=== PATIENT | male | born 1975 | race Caucasian/White ===

== ENCOUNTER 2021-03-10 09:08 | Day surgery (SDC) | payer OTHER ==
[2021-03-04 14:25] LABS: BASOPHILS # (AUTO) 0.1 X10'3 (0-0.2); BASOPHILS % (AUTO) 1.2 % (0-1); EOSINOPHILS # (AUTO) 0.2 X10'3 (0-0.9); EOSINOPHILS % (AUTO) 3.1 % (0-6); LYMPHOCYTES # (AUTO) 2.2 X10'3 (1.1-4.8); LYMPHOCYTES % (AUTO) 29.7 % (21-51); MEAN CORPUSCULAR HEMOGLOBIN 30.3 PG (27.0-31.0); MEAN CORPUSCULAR HGB CONC 33.2 g/dL (33.0-36.5); MEAN CORPUSCULAR VOLUME 91.2 FL (78-98); MONOCYTES # (AUTO) 0.5 X10'3 (0-0.9); MONOCYTES % (AUTO) 7.2 % (2-12); NEUTROPHILS # (AUTO) 4.4 X10'3 (1.8-7.7); NEUTROPHILS % (AUTO) 58.8 % (42-75); PRE OP HEMATOCRIT 43.8 % (42.0-52.0); PRE OP HEMOGLOBIN 14.6 g/dL (14.0-17.9); PRE OP PLATELET COUNT 308 X10'3 (140-440); RED BLOOD COUNT 4.81 X10'6 (4.70-6.10); RED CELL DISTRIBUTION WIDTH 13.8 % (11.5-14.5)
[2021-03-04 14:45] LABS: ALBUMIN 4.4 G/DL (3.4-5.0); ALBUMIN/GLOBULIN RATIO 1.2 (1.1-1.5); ALKALINE PHOSPHATASE 71 IU/L (46-116); BLOOD UREA NITROGEN 11 MG/DL (7-18); BUN/CREATININE RATIO 11.3 (5.4-32.0); CALCIUM 8.8 MG/DL (8.5-10.1); CREATININE 0.97 MG/DL (0.60-1.10); PRE OP ALT 63 U/L (30-65); PRE OP AST 27 U/L (10-37); PRE OP BILIRUB, TOTAL 0.5 MG/DL (0.0-1.0); PRE OP GLUCOSE 94 MG/DL (70-104); TOTAL CARBON DIOXIDE 24.6 MMOL/L (24-32); eGFR 84 ML/MIN
[2021-03-04 14:52] LABS: CHLORIDE 103 MMOL/L (99-107); PRE OP ANION GAP 13 (8-16); PRE OP POTASSIUM 4.3 MMOL/L (3.4-5.1); PRE OP SODIUM 141 MMOL/L (135-145)
[~2021-03-10] VITALS: Ht 170.2 cm; Wt 82.0 kg
[2021-03-10] VITALS (14 sets, daily range): BP systolic 131–157; BP diastolic 71–99
[~2021-03-10 09:08] MED LIST: NO HOME MEDS; cefazolin/dext.iso 2gm/100ml IV ONE; famotidine 20mg tablet PO ONE; ringers solution, lacted 1,000 ML IV SCH
[2021-03-10] MEDS ORDERED: BUPIVAcaine 0.5% inj/PF 30 ML ONE (10:07)
[2021-03-10] MEDS ORDERED: LIDOcaine 1% 30ml preserv. free vial ONE (10:07)
[2021-03-10] MEDS ORDERED: hydrALAZINE 20mg/ml inj. IV PRN (10:50)
[2021-03-10] MEDS ORDERED: fentaNYL/PF 50MCG/1 ML 2ML syringe IV PRN ×2 (10:50)
[2021-03-10] MEDS ORDERED: morphine 4 MG/ML inj SYRINge IV PRN (10:50)
[2021-03-10] MEDS ORDERED: morphine 2 MG/ML inj. syringe IV PRN (10:50)
[2021-03-10] MEDS ORDERED: labetalol 20mg/4ml (5mg/ml) syringe IV PRN (10:50)
[2021-03-10] MEDS ORDERED: ondansetron/PF 4mg/2ml inj IV PRN (10:50)
[2021-03-10] MEDS ORDERED: ringers solution, lacted 1,000 ML IV SCH (10:50)
[2021-03-10] MEDS ORDERED: glycopyrrolate 0.2mg/ml inj ONE (10:56)
[2021-03-10] MEDS ORDERED: neostigmine methylsulfate 1 MG/ML 10ml vial ONE (10:56)
[2021-03-10] MEDS ORDERED: sevoflurane 250ml liquid IH ONE (10:56)
[2021-03-10] MEDS ORDERED: fentaNYL/PF 50MCG/1 ML 2ML syringe ONE (11:01)
[2021-03-10] MEDS ORDERED: midazolam 1 mg/ML 2ml injection ONE (11:01)
[2021-03-10] MEDS ORDERED: LIDOcaine 2% (20mg/ml) 5ml vial ONE (11:08)
[2021-03-10] MEDS ORDERED: propofol inj 20 ML IV ONE (11:08)
[2021-03-10] MEDS ORDERED: rocuronium 10mg/ml inj IV ONE (11:09)
[2021-03-10] MEDS ORDERED: ondansetron/PF 4mg/2ml inj ONE (11:10)
[2021-03-10] MEDS ORDERED: dexamethasone sod phosphate 4mg/ml inj. ONE (11:11)
--- NOTE | 2021-03-10 12:01 | NUR ---
Received from OR via [facility], accompanied by Anesthesiologist ANTONETTE and report given by Anesthesiolgist. PATIENT WITH 20G PIV IN LEFT AC RUNNING LR AT 100. DENIES PAIN AT THIS TIME. 3 ABDOMINAL BANDAIDS PRESENT THAT ARE ALL CDI. 10L MASK ON WITH 100% SATURATIONS. Addendum: 03/10/21 at 1212 by Jamarcus Hidalgo RN, RN Amended: Links added.
[2021-03-10] MEDS ORDERED: oxyCODONE/APAP 5-325mg tablet PO PRN (12:20)
--- NOTE | 2021-03-10 15:51 | NUR ---
ALL DC CRITERIA HAS BEEN MET. MD LONG AWARE OF 300 CC URINE IN PATIENTS BLADDER. PATIENT HAS HAD CONSECUTIVE STREAMS OF URINE AND AGREES HE CAN GO HOME WITH OUT A CATHETER. OUT VIA WHEELCHAIR TO PERSONAL VEHICLE WHERE HE WAS SENT HOME WITH FAMILY MEMBER. Addendum: 03/10/21 at 1555 by Jamarcus Hidalgo RN, RN Amended: Links added.
== END 2021-03-10 15:51 | disposition home or self-care (01) ==
LOC: PAS 09:08
PROVIDERS: ATTEND Surgery
DX: K40.90 Unilateral inguinal hernia, without obstruction or gangrene, not specified as recurrent (principal); I10 Essential (primary) hypertension; F17.210 Nicotine dependence, cigarettes, uncomplicated; Z88.5 Allergy status to narcotic agent; Z98.52 Vasectomy status; Z79.899 Other long term (current) drug therapy
CPT/HCPCS: 36415; 49650; 80053; 82948; 85025; 93005; C1781; J1100; J2001; J2250; J2405; J2704; J2710; J3010; S2900; Z7506; Z7508; Z7512; A4215; A4618; J3490; J7120